=== PATIENT | male | born 1975 ===

== ENCOUNTER 2025-06-01 18:58 | Outpatient (REF) | payer SELFPAY ==
[2025-06-10 11:18] LABS: Naloxone Confirmation Total Ur 40 ng/mL; Reporting Limit 5.0 ng/mL
== END 2025-06-01 18:59 | disposition home or self-care (01) ==
LOC: NCHCN 18:58
PROVIDERS: PCP Emergency Medicine; Visit Provider Emergency Medicine
DX: F11.20 Opioid dependence, uncomplicated (principal)
CPT/HCPCS: 80307; 80348